=== PATIENT | female | born 1935 | race Two or more races ===

== ENCOUNTER 2017-01-14 18:34 | Emergency (ER) | payer MEDICARE, OTHER ==
[~2017-01-14] VITALS: Ht 157.5 cm; Wt 91.6 kg
--- NOTE | 2017-01-14 18:42 | NUR ---
PT BIBRA FROM HOME. PER REPORT, NEAR SYNCOPE. NO FALL. PT IS AAO, [employer]ZING [employer] WORK[employer]. STATES FEELING BETTER AND WANTS TO GO HOME. REFUSING TREATMENT. AWAITING MD VERDUZCO.
--- NOTE | 2017-01-14 18:50 | NUR ---
PT IS REFUSING BLOOD DRAW. ERMD AWARE.
--- NOTE | 2017-01-14 19:25 | NUR ---
PT AGREE TO EKG AND ACCUCHECK. NORMAL. PT REFUSING TREATMENT. AMA FORM SIGNED. D/C STABLE CONDITION.
[2017-01-14 19:27] VITALS: BP 156/80
== END 2017-01-14 19:30 | disposition home or self-care (01) ==
LOC: ER 18:37
DX: R55 Syncope and collapse (principal); I10 Essential (primary) hypertension; E11.9 Type 2 diabetes mellitus without complications; Z53.20 Procedure and treatment not carried out because of patient's decision for unspecified reasons
CPT/HCPCS: 82962; 93005; 99284; A4606; Z7610

== ENCOUNTER 2018-04-22 17:50 | Emergency (ER) | payer OTHER ==
[~2018-04-22] VITALS: Ht 170.2 cm; Wt 68.0 kg
--- NOTE | 2018-04-22 18:34 | NUR ---
LLQ abd pain without nausea or vomiting x many years, worsening today. PAIN IS SHARP AND NON-RADIATING, 8/10. PT IS AOX4, AMB, VSS, RR EVEN AND UNLABORED. SKIN INTACT. NO ACUTE DISTRESS. DENIES SOB, DIZZINESS, WEAKNESS. READY FOR EVAL.
[2018-04-22] MEDS ORDERED: IV NS 0.9% 1,000 ML BAG IV ONE (19:00)
[2018-04-22 19:10] LABS: BASOPHILS # (AUTO) 0.1 /CMM (0.0-0.2); HEMATOCRIT 36 % (33-45); HEMOGLOBIN 11.6 g/dL (11.5-14.8); LYMPHOCYTES # (AUTO) 1.6 /CMM (0.8-4.8); LYMPHOCYTES % (AUTO) 24.3 % (20.0-44.0); MEAN CORPUSCULAR HGB CONC 32 g/dl (31.0-36.0); MEAN CORPUSCULAR VOLUME 85 fL (82-100); MONOCYTES # (AUTO) 0.5 /CMM (0.1-1.30); MONOCYTES % (AUTO) 7.7 % (2.0-12.0); NEUTROPHILS # (AUTO) 4.3 /CMM (1.8-8.9); PLATELET COUNT (AUTO) 308 /CMM (150-450); WHITE BLOOD COUNT (AUTO) 6.5 K/uL (4.3-11.0)
[2018-04-22 19:17] LABS: CARBON DIOXIDE 30 mmol/L (21-32); CHLORIDE 102 mmol/L (98-107); CREATININE 1.1 mg/dL (0.6-1.3); GLUCOSE 130 mg/dL (74-106); POTASSIUM 4.1 mmol/L (3.5-5.1); SODIUM SERUM 139 mmol/L (136-145); UREA NITROGEN, BLOOD 11 mg/dL (7-18)
[2018-04-22 19:23] LABS: ALANINE AMINOTRANSFERASE 11 U/L (12-78); ALBUMIN 3.7 g/dL (3.4-5.0); ALKALINE PHOSPHATASE 75 U/L (46-116); ASPARTATE AMINOTRANSFERASE 13 U/L (15-37); BILIRUBIN,DIRECT 0.1 mg/dL (0.0-0.2); BILIRUBIN,TOTAL 0.6 mg/dL (0.2-1.0); LIPASE 167 U/L (73-393); TOTAL PROTEIN, SERUM 8.1 g/dL (6.4-8.2)
--- NOTE | 2018-04-22 19:29 | NUR ---
PT TAKEN TO RADIOLOGY FOR CT VIA KASSANDRA.
--- NOTE | 2018-04-22 19:33 | NUR ---
FRIEND AT BEDSIDE
[2018-04-22] MEDS ORDERED: METRONIDAZOLE 500MG/ NS 100ML 100 ML IV ONE ×2 (21:00→21:35)
[2018-04-22] MEDS ORDERED: LEVOFLOXACIN 750 MG /D5W 150ML 150 ML IV ONE ×2 (21:00→21:35)
--- NOTE | 2018-04-22 21:16 | NUR ---
Patient is resting comfortably in bed with eyes closed. Easily aroused. VSS
--- NOTE | 2018-04-22 21:32 | NUR ---
SPOKE WITH CUSTODIAN SUPERVISOR. SHE WILL CALL BACK WITH HOSPITAL FOR TRANSFER.
--- NOTE | 2018-04-22 23:08 | NUR ---
PT ACCEPTED TO [facility] NUMBER FOR REPORT: [phone] [facility] ETA 1HR
--- NOTE | 2018-04-22 23:24 | NUR ---
REPORT GIVEN TO RAIMUNDO HAM AT [facility] FOR ROOM 4313
--- NOTE | 2018-04-23 00:05 | NUR ---
[facility] ARRIVED. REPORT GIVEN TO [facility] EMT. COPY OF ALL PAPERWORK, LABS, IMAGING, DR. REPORT GIVEN TO EMT BY RAIMUNDO RIBERA/BILLYG
--- NOTE | 2018-04-23 00:06 | NUR ---
ASSUMED CARE OF PT AT THIS TIME. REPORT GIVEN TO EMS CREW FOR [facility]. PT BEING LOADED ONOT GURNEY WITH NO S/S OF DISTRES NOTED
[2018-04-23 00:12] VITALS: BP 155/94
--- NOTE | 2018-04-23 00:12 | NUR ---
Patient Tranfers to outside Facility Physician:MADELINE Location:[facility], ROOM 4204
== END 2018-04-23 00:14 | disposition short-term general hospital (02) ==
LOC: ER 17:50
DX: R10.32 Left lower quadrant pain (principal); I25.2 Old myocardial infarction; I10 Essential (primary) hypertension; E11.9 Type 2 diabetes mellitus without complications; Z60.2 Problems related to living alone
CPT/HCPCS: 36415; 71045-TC; 80048-TC; 80076-TC; 83605-TC; 83690-TC; 85025-TC; 87040-TC; J1956; J3490; J7030